=== PATIENT | female | born 1955 | race Caucasian/White ===

== ENCOUNTER → 2017-05-06 | Outpatient (CLI) | payer OTHER ==
[~2017-05-06] MED LIST: ASPIRIN CHEWABL81 MG PO
== END ==
LOC: RAD 11:44
DX: R05 Cough (principal)
CPT/HCPCS: 71020

== ENCOUNTER 2021-09-21 09:06 | Emergency (ER) | payer MEDICARE ==
[2021-09-21 10:52] LABS: HEMOGLOBIN 13.9 gm/dl (12.3-15.3); RED BLOOD COUNT 5.17 M/UL (4.00-5.10); WHITE BLOOD COUNT 9.2 K/UL (4.5-11.0)
[2021-09-21 11:14] LABS: BUN/CREATININE RATIO 21 (0-10)
== END 2021-09-21 13:00 | disposition home or self-care (01) ==
LOC: ER1 09:06
PROVIDERS: Physician Assistant
DX: U07.1 COVID-19 (principal); J12.82 Pneumonia due to coronavirus disease 2019; E78.5 Hyperlipidemia, unspecified; E11.9 Type 2 diabetes mellitus without complications
CPT/HCPCS: 0240U; 71045; 80053; 81001; 82550; 82553; 83874; 83880; 84484; 85025; 87086; 93005; 96374; 99284; J2405